=== PATIENT | female | born 1980 | race Caucasian/White ===

== ENCOUNTER 2018-01-03 08:42 | Day surgery (SDC) | payer BC ==
[2018-01-03] MEDS ORDERED: CEFAZOLIN 1 GM/50 ML (PMX) 50 ML IVPB (09:00)
[2018-01-03] MEDS: SOD CHLORIDE 0.9% 500 ML (09:55)
[2018-01-03] MEDS: LACTATED RINGER'S 1,000 ML IV (10:30)
[2018-01-03] MEDS: CLINDAMYCIN 600 MG/D5W (PMX) 50 ML IVPB (11:00)
[2018-01-03] MEDS: MIDAZOLAM 1 MG/ML 2 ML INJ (11:42)
[2018-01-03] MEDS: FENTAnyl 50 MCG/ML VIAL ×2 (11:44→11:45)
[2018-01-03] MEDS: LIDOCAINE 1%/EPI 30 ML INJ (12:00)
[2018-01-03] MEDS: POLYMYXIN/BACITRACIN 1L IRRIG IRR (12:00)
[2018-01-03] MEDS: HEPARIN 1000 UNITS/ML 10 ML INJ (12:00)
[2018-01-03] MEDS ORDERED: HYDROCODONE/APAP (5/325) TAB PO (12:30)
== END 2018-01-03 14:25 | disposition home or self-care (01) ==
LOC: SDS 08:42
DX: C50.912 Malignant neoplasm of unspecified site of left female breast (principal)
CPT/HCPCS: 36561; 76942; 93306